=== PATIENT | male | born 1960 | race African-American/Black ===

== ENCOUNTER 2018-02-04 01:43 | Inpatient (IN) | END 2018-02-06 11:20 | disposition home or self-care (01) | DRG 305 ==

== ENCOUNTER 2018-02-16 12:12 | Emergency (ER) | END 2018-02-16 14:54 | disposition home or self-care (01) ==

== ENCOUNTER 2018-02-16 17:02 | Emergency (ER) | END 2018-02-16 21:04 | disposition home or self-care (01) ==

== ENCOUNTER 2018-02-17 16:47 | Emergency (ER) | END 2018-02-17 18:24 | disposition left against medical advice (07) ==

== ENCOUNTER 2018-07-26 05:13 | Emergency (ER) | END 2018-07-26 07:48 | disposition home or self-care (01) ==